=== PATIENT | female | born 1990 | race Caucasian/White ===

== ENCOUNTER → 2018-06-13 | Outpatient (CLI) | payer OTHER | LOC: COL.LAB 18:03 | DX: R07.89 Other chest pain (principal) ==

== ENCOUNTER → 2018-09-24 | Outpatient (CLI) | payer OTHER ==
[2018-09-24 09:47] LABS: CALCIUM 9.3 mg/dL (8.4-10.2); CREATININE, serum 0.84 mg/dL (0.52-1.25); POTASSIUM 4.4 mmol/L (3.4-5.0)
== END ==
LOC: COL.LAB 09:19
PROVIDERS: Internal Medicine Clinical Cardiac Electrophysiology
DX: I95.1 Orthostatic hypotension (principal); R00.2 Palpitations; R00.0 Tachycardia, unspecified

== ENCOUNTER → 2018-12-06 | Outpatient (CLI) | payer OTHER | LOC: COL.LAB 08:00 | DX: Z11.1 Encounter for screening for respiratory tuberculosis (principal) ==

== ENCOUNTER → 2019-01-17 | Outpatient (CLI) | payer OTHER | LOC: COL.RAD 15:40 | DX: S69.81XA Other specified injuries of right wrist, hand and finger(s), initial encounter (principal); M79.89 Other specified soft tissue disorders; Y93.64 Activity, baseball ==

== ENCOUNTER → 2019-03-23 | Outpatient (CLI) | payer OTHER ==
[2019-03-23 18:56] LABS: THYROID STIMULATING HORMONE 0.071 uIU/mL (0.465-4.680)
== END ==
LOC: COL.LAB 17:36
PROVIDERS: Family Medicine
DX: E03.9 Hypothyroidism, unspecified (principal)

== ENCOUNTER → 2019-05-09 | Outpatient (CLI) | payer OTHER ==
[2019-05-09 11:30] LABS: THYROID STIMULATING HORMONE 55.4 uIU/mL (0.465-4.680)
== END ==
LOC: COL.LAB 09:58
PROVIDERS: Family Medicine
DX: E03.9 Hypothyroidism, unspecified (principal)

== ENCOUNTER → 2019-06-27 | Outpatient (CLI) | payer OTHER ==
[2019-06-27 11:20] LABS: THYROID STIMULATING HORMONE 3.47 uIU/mL (0.465-4.680)
== END ==
LOC: EUO 09:42 → COL.LAB 09:42
PROVIDERS: Family Medicine
DX: E03.9 Hypothyroidism, unspecified (principal)

== ENCOUNTER → 2019-10-12 | Outpatient (CLI) | payer OTHER | LOC: COL.LAB 14:59 | DX: E03.9 Hypothyroidism, unspecified (principal); R53.83 Other fatigue ==

== ENCOUNTER → 2020-02-27 | Outpatient (CLI) | payer OTHER ==
[~2020-02-27] MED LIST: CYMBALTA 20MG20 MG PO; OXYCODONE H5 MG/5 ML PO; STRATTERA80 MG PO; SYNTHROID0.175 MG PO; ZOFRAN8 MG PO; ZYRTEC 10MG10 MG PO
== END ==
LOC: COL.LAB 08:00
DX: Z20.828 Contact with and (suspected) exposure to other viral communicable diseases (principal)

== ENCOUNTER 2020-03-03 08:57 | Day surgery (SDC) | payer OTHER ==
[2020-03-03] VITALS (7 sets, daily range): BP systolic 104–127; BP diastolic 63–72; PULSE 84–126; TEMP 97.7–98.1
[~2020-03-03] VITALS: Ht 139.7 cm; Wt 67.7 kg
[~2020-03-03 08:57] MED LIST changes: -OXYCODONE H5 MG/5 ML PO; -ZOFRAN8 MG PO
--- NOTE | 2020-03-03 09:27 | NUR ---
TO ANTWON AT 0902- CALL LIGHT IN REACH FRIEND YAZAN AT BEDSIDE
--- NOTE | 2020-03-03 13:10 | NUR ---
TO RM 2 PER CART FROM PACU. ALERT ORIENTED X3, TALKING WITH STAFF AND FRIEND YAZAN. COLOR PALE AND DIAPHORETIC. C/O PAIN 2/10 AT CURRENT TIME. C/O SLIGHT NAUSEA AND FEELING LIGHT HEADED. ICE OVER THROAT AREA FOR COMFORT.
--- NOTE | 2020-03-03 13:25 | NUR ---
PATIENT RESTING QUIETLY WITH FRIEND AT BEDSIDE. COLOR CONTINUES TO BE PALE. TAKING SIPS OF WATER.
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
[2020-03-03] MEDS ORDERED: ZOFRAN8 MG PO (13:53)
[2020-03-03] MEDS ORDERED: OXYCODONE H5 MG/5 ML PO (13:53)
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
--- NOTE | 2020-03-03 15:00 | NUR ---
PATIENT STATED "I JUST FEEL LIGHT HEADED. "
--- NOTE | 2020-03-03 16:00 | NUR ---
CONTINUES TO C/O INCREASED NAUSEA. IV PHENERGAN STARTED PER ORDER.
--- NOTE | 2020-03-03 16:30 | NUR ---
PATIENT STATED SHE FELT BETTER AND WANTED TO GO HOME. RECEIVED DISCHARGE INSTRUCTIONS AND VERBALIZED UNDERSTANDING. DISCONTINUED IV AND INT- PATIENT GETTING DRESSED.
--- NOTE | 2020-03-03 16:39 | NUR ---
DISCHARGED PER WC BY NURSING STAFF TO PRIVATE CAR IN CARE OF FRIEND YAZAN.
== END 2020-03-03 16:41 | disposition home or self-care (01) ==
LOC: SDCO 08:57
DX: J35.01 Chronic tonsillitis (principal); E89.0 Postprocedural hypothyroidism; Z88.1 Allergy status to other antibiotic agents; Z88.8 Allergy status to other drugs, medicaments and biological substances; Z11.59 Encounter for screening for other viral diseases
CPT/HCPCS: J1100; J2270; J2405; J2550; J2704; J3010; J7120

== ENCOUNTER 2021-01-19 20:45 | Emergency (ER) | payer OTHER ==
[~2021-01-19] VITALS: Ht 170.2 cm; Wt 74.1 kg
[~2021-01-19 20:45] MED LIST changes: +OXYCODONE H5 MG/5 ML PO; +ZOFRAN8 MG PO
[2021-01-19 20:54] VITALS: TEMP 97.8
[2021-01-19 21:40] VITALS: BP 111/68; PULSE 60
== END 2021-01-19 21:40 | disposition home or self-care (01) ==
LOC: COL.ER 20:45
DX: L50.0 Allergic urticaria (principal); F41.9 Anxiety disorder, unspecified; E03.9 Hypothyroidism, unspecified; Z88.1 Allergy status to other antibiotic agents; Z88.8 Allergy status to other drugs, medicaments and biological substances; Z79.890 Hormone replacement therapy
CPT/HCPCS: J1100

== ENCOUNTER → 2021-11-18 | Outpatient (CLI) | payer OTHER | LOC: COL.LAB 06:04 | DX: E89.0 Postprocedural hypothyroidism (principal) ==

== ENCOUNTER → 2022-01-01 | Outpatient (CLI) | payer OTHER | LOC: COL.LAB 05:47 | DX: E89.0 Postprocedural hypothyroidism (principal) ==

== ENCOUNTER → 2022-02-12 | Outpatient (CLI) | payer OTHER | LOC: COL.LAB 05:53 | DX: E89.0 Postprocedural hypothyroidism (principal) ==

== ENCOUNTER → 2022-04-17 | Outpatient (CLI) | payer OTHER | LOC: ZCOL.LAB 05:56 | DX: E89.0 Postprocedural hypothyroidism (principal) ==

== ENCOUNTER → 2022-06-05 | Outpatient (CLI) | payer BC | LOC: COL.LAB 13:45 | DX: E89.0 Postprocedural hypothyroidism (principal) ==